=== PATIENT | female | born 1985 | race Caucasian/White ===

== ENCOUNTER 2020-12-18 18:26 | Emergency (ER) | payer OTHER ==
[2020-12-18] MEDS ORDERED: IBUPROFEN600 MG PO (19:33)
[2020-12-18] MEDS ORDERED: CYCLOBENZAPRINE10 MG PO (19:39)
== END 2020-12-18 20:05 | disposition home or self-care (01) ==
LOC: ER1 18:26
DX: M25.511 Pain in right shoulder (principal); G89.29 Other chronic pain; F12.10 Cannabis abuse, uncomplicated
CPT/HCPCS: 73030; 99283